=== PATIENT | female | born 1975 | race Caucasian/White ===

== ENCOUNTER 2022-04-12 13:20 | Emergency (ER) | payer MEDICAID, OTHER ==
[~2022-04-12] VITALS: Ht 167.6 cm; Wt 95.0 kg
[2022-04-12 13:53] VITALS: BP 125/77
[2022-04-12] MEDS ORDERED: CYCL-1 PO (14:40)
[2022-04-12] MEDS ORDERED: ketorolac trometh inj. 60 MG/2 ML VIAL IM ONE (14:40)
[2022-04-12] MEDS ORDERED: cyclobenzaprine 10mg tablet PO ONE (14:40)
[2022-04-12] MEDS ORDERED: IBUP-1986 PO (14:40)
== END 2022-04-12 14:59 | disposition home or self-care (01) ==
LOC: ER 13:21
DX: M54.2 Cervicalgia (principal)
CPT/HCPCS: 96372; 99283; J1885

== ENCOUNTER 2022-05-11 08:31 | Emergency (ER) | payer MEDICAID, OTHER ==
[~2022-05-11] VITALS: Ht 167.6 cm; Wt 92.7 kg
[~2022-05-11 08:31] MED LIST: CYCL-1 PO; IBUP-1986 PO
[2022-05-11 10:17] LABS: CLARITY,URINE SLIGHTLY CLOUDY (Clear)
[2022-05-11 10:28] LABS: COLOR,URINE ORANGE (Yellow); UA COLLECTION TYPE CLN CATCH MIDSTREAM
[2022-05-11 10:31] LABS: BACTERIA,URINE 3+ /HPF (Neg); MUCUS STRANDS FEW /LPF (Neg); RBC,URINE 0-2 /HPF (0-2); SQUAMOUS EPITHELIAL CELL,UR MANY /LPF (FEW)
[2022-05-11 10:54] LABS: BASOPHILS % (AUTO) 0.5 % (0-1); EOSINOPHILS % (AUTO) 0.6 % (0-6); HEMATOCRIT 41.1 % (35.0-45.0); HEMOGLOBIN 13.8 g/dl (12.0-16.0); LYMPHOCYTES # (AUTO) 1.4 X10'3 (1.1-4.8); LYMPHOCYTES % (AUTO) 18.3 % (21-51); MEAN CORPUSCULAR HGB CONC 33.5 g/dL (33.0-36.5); MEAN CORPUSCULAR VOLUME 92.5 FL (78-98); MEAN PLATELET VOLUME 8.9 FL (7.4-10.4); MONOCYTES # (AUTO) 0.5 X10'3 (0-0.9); MONOCYTES % (AUTO) 6.8 % (2-12); NEUTROPHILS # (AUTO) 5.7 X10'3 (1.8-7.7); NEUTROPHILS % (AUTO) 73.8 % (42-75); PLATELET COUNT 213 X10'3 (140-440); RED BLOOD COUNT 4.44 X10'6 (4.20-5.60); RED CELL DISTRIBUTION WIDTH 14.4 % (11.5-14.5); WHITE BLOOD COUNT 7.7 X10'3 (4.5-11.0)
[2022-05-11 11:02] LABS: ALANINE AMINOTRANSFERASE 26 U/L (12-78); ALBUMIN 3.8 G/DL (3.4-5.0); ALBUMIN/GLOBULIN RATIO 1.2 (1.1-1.5); ALKALINE PHOSPHATASE 40 IU/L (46-116); ANION GAP 7 (8-16); ASPARTATE AMINO TRANSFERASE 16 U/L (10-37); BILIRUBIN,TOTAL 1.1 MG/DL (0.1-1.0); BLOOD UREA NITROGEN 7 MG/DL (7-18); BUN/CREATININE RATIO 8.6 (6.6-38.0); CALCIUM 8.4 MG/DL (8.5-10.1); CHLORIDE 108 MMOL/L (99-107); CREATININE 0.81 MG/DL (0.40-0.90); GLUCOSE 105 MG/DL (70-104); POTASSIUM 3.8 MMOL/L (3.5-5.1); SODIUM 142 MMOL/L (135-145); TOTAL CARBON DIOXIDE 27.2 MMOL/L (24-32); TOTAL PROTEIN 6.9 G/DL (6.4-8.2); eGFR 76 ML/MIN
[2022-05-11 11:41] VITALS: BP 137/78
[2022-05-11] MEDS ORDERED: CIPR-202 PO ×3 (13:19→13:44)
== END 2022-05-11 13:41 | disposition home or self-care (01) ==
LOC: ER 08:32
DX: N30.01 Acute cystitis with hematuria (principal); N39.0 Urinary tract infection, site not specified; Z79.899 Other long term (current) drug therapy
CPT/HCPCS: 36415; 74176; 80053; 81001; 85025; 99284

== ENCOUNTER 2024-04-19 11:40 | Emergency (ER) | payer BC, MEDICAID ==
[~2024-04-19] VITALS: Ht 167.6 cm; Wt 94.8 kg
[~2024-04-19 11:40] MED LIST changes: +CIPR-202 PO
[2024-04-19 11:47] VITALS: TEMP 97.8
[2024-04-19] MEDS: proparacaine 0.5% ophthalmic drops 15ml EACHEYE ONE (12:25)
[2024-04-19 13:14] VITALS: BP 128/73; PULSE 64; RESP 16; O2SAT 99
== END 2024-04-19 13:16 | disposition home or self-care (01) ==
LOC: ER 11:41
DX: T15.91XA Foreign body on external eye, part unspecified, right eye, initial encounter (principal); Z79.2 Long term (current) use of antibiotics; Z79.1 Long term (current) use of non-steroidal anti-inflammatories (NSAID); W44.9XXA Unspecified foreign body entering into or through a natural orifice, initial encounter; Y93.89 Activity, other specified; Y92.89 Other specified places as the place of occurrence of the external cause; Y99.8 Other external cause status
CPT/HCPCS: 99283